=== PATIENT | female | born 1960 | race Caucasian/White ===

== ENCOUNTER 2020-12-24 15:30 | Outpatient (RCR) | payer MEDICARE, MEDICAID, SELFPAY ==
--- NOTE | 2020-09-18 08:38 | HO.OPPROGNO ---
Subjective Subjective Date of Service: 09/17/20 Reason For Visit: depression Interim History: Heavenly reports feeling less pressure now that ex-partner has housing, license, vehicle, but grief over loss of previous relationship with him. Mostly staying at home, activities with her children. Enjoyed her favorite store this week-states it is the one thing that is mostly the same since the pandemic. She clarifies that checking out is different now. Enjoys the atmosphere there. Discussed mindfulness meditation which she has not been practicing, however, feels she needs to return. Given virtual group resource sites for her to review. Reports sleep is appropriate, meds tolerated. Notices she has needed an Ativan during this time. Settling in, now that activity and responsibility are diminished, grief is setting in. Medication Compliance: Yes Side effects from medications: No Attending Groups: No (NA) Review of Systems Review of Systems Yes all other systems are reviewed and are negative Psychiatric: Reports depression (grieving loss of relationship) Mental Status Exam Mental Status Exam Patient Appearance: Well Grooomed and Appropriate Patient Orientation: Person, Place, Time and Situation Level of Consciousness: Awake, Appropriate and Alert Patient Behavior: Appropriate, Talkative and Cooperative Mood Description: Calm and Flat Affect Description: Flat Patient Cognition Impaired: No Ability to Follow Directions: Excellent Speech Pattern: Clear, Appropriate, Spontaneous Speech and Soft-Spoken Memory Description: Intact Hallucinations: None Delusions: Not Present Thought Process: Intact Thought Content: positive for Intact Depressive Symptoms: Loss of Int. in Activity, Isolating-Friends/Family, Unhappiness and Increased Fatigue Judgement: Good Discharge Plan Discharge Attending provider: Tegan Donnelly Medications: New quetiapine [Seroquel] 50 mg tablet 100 mg PO BEDTIME MDD Take 50-100 mg at bedtime Qty: 60 RF: 1 oxcarbazepine [Trileptal] 600 mg tablet 600 mg PO BID Qty: 60 RF: 1 bupropion HCl [Wellbutrin SR] 100 mg tablet sustained-release 12 hr 100 mg PO QAM Qty: 30 RF: 1 sertraline 50 mg tablet 50 mg PO DAILY Qty: 30 RF: 1 No Action hydrochlorothiazide 25 mg tablet 25 mg PO DAILY RF: 0 lorazepam 1 mg tablet 1 - 2 tab PO TID PRN (Reason: anxiety) RF: 0 rosuvastatin 10 mg tablet 1 tab PO DAILY RF: 0 aspirin 81 mg 81 mg PO DAILY RF: 0 Assessment & Plan Patient educated on: medication risk/benefits and therapeutic strategies Informed Consent: understands and further education needed Reason for contiued therapy Substantial Risk for: inability to function and rapid decompensation Greater than 50% of the session was spent on counseling and/or coordination of care
--- NOTE | 2020-09-18 08:55 | P.PNPSO_ITS ---
Subjective Subjective Date of Service: 08/20/20 Reason For Visit: depression Interim History: We go to put the car on the road on Wednesday. I need some time for myself. Expressed feeling burn-out with ex-partner and having to help him re-establish himself. Believes when he has his vehicle on the road this week she will be able to pull back and take some time for herself. Grieving loss of her partner and distancing currently at her own pace. They have a 40+ year history and she acknowledges how difficult this is for her. Medication Compliance: Yes Side effects from medications: No Attending Groups: No (NA) Review of Systems Review of Systems Yes all other systems are reviewed and are negative Psychiatric: Reports depression (grieving) and Reports other (mixed feelings regarding loss with responsibility) Mental Status Exam Mental Status Exam Patient Appearance: Well Grooomed, Fatigued and Appropriate Patient Orientation: Person, Place, Time and Situation Level of Consciousness: Awake, Appropriate and Alert Patient Behavior: Appropriate, Talkative, Cooperative, Passive, Fatigued and Good Eye Contact Mood Description: Flat and Sad Affect Description: Flat Patient Cognition Impaired: No Ability to Follow Directions: Excellent Speech Pattern: Clear, Appropriate, Spontaneous Speech and Soft-Spoken Memory Description: Intact Hallucinations: None Delusions: Not Present Thought Process: Intact Thought Content: positive for Intact Depressive Symptoms: Loss of Int. in Activity, Hopelessness, Isolating- Friends/Family, Unhappiness, Increased Fatigue, Low Self Esteem and Loss of Energy Judgement: Good Discharge Plan Discharge Attending provider: Tegan Donnelly Additional Instructions: 08/20/20-Continue current regime Medications: New quetiapine [Seroquel] 50 mg tablet 100 mg PO BEDTIME MDD Take 50-100 mg at bedtime Qty: 60 RF: 1 oxcarbazepine [Trileptal] 600 mg tablet 600 mg PO BID Qty: 60 RF: 1 bupropion HCl [Wellbutrin SR] 100 mg tablet sustained-release 12 hr 100 mg PO QAM Qty: 30 RF: 1 sertraline 50 mg tablet 50 mg PO DAILY Qty: 30 RF: 1 No Action hydrochlorothiazide 25 mg tablet 25 mg PO DAILY RF: 0 lorazepam 1 mg tablet 1 - 2 tab PO TID PRN (Reason: anxiety) RF: 0 rosuvastatin 10 mg tablet 1 tab PO DAILY RF: 0 aspirin 81 mg 81 mg PO DAILY RF: 0 Assessment & Plan Patient educated on: therapeutic strategies Informed Consent: understands and further education needed Reason for contiued therapy Substantial Risk for: inability to function and rapid decompensation Greater than 50% of the session was spent on counseling and/or coordination of care
--- NOTE | 2020-09-18 09:04 | HO.OPPROGNO ---
Subjective Subjective Date of Service: 08/27/20 Reason For Visit: depression Interim History: The car is on the road. He has an offer to live with a friend who is sober. I feel a great deal of relief and freedom. Reports ex-partner has his car and was offered housing-both relieving, positive developments to decrease her feeling of responsibility. Continues to terminate with him, these new developments she feels make this process easier. Medication Compliance: Yes Side effects from medications: No Attending Groups: No (NA) Review of Systems Review of Systems Yes all other systems are reviewed and are negative Psychiatric: Reports anhedonia and Reports other (Grief, discussed mixed feelings of sadness, relief, anger) Mental Status Exam Mental Status Exam Patient Appearance: Well Grooomed, Fatigued and Appropriate Patient Orientation: Person, Place, Time and Situation Level of Consciousness: Awake, Appropriate and Alert Patient Behavior: Appropriate, Talkative and Cooperative Mood Description: Anxious and Sad Affect Description: Flat Patient Cognition Impaired: No Ability to Follow Directions: Excellent Speech Pattern: Clear, Appropriate and Spontaneous Speech Memory Description: Intact Hallucinations: None Delusions: Not Present Thought Process: Intact and Goal Oriented Thought Content: positive for Intact Depressive Symptoms: Increased Irritability (at times, with anger, as part of grieving.) Judgement: Good Discharge Plan Discharge Attending provider: Tegan Donnelly Additional Instructions: 08/20/20-Continue current regime 08/27/20- Continue current regime Medications: New quetiapine [Seroquel] 50 mg tablet 100 mg PO BEDTIME MDD Take 50-100 mg at bedtime Qty: 60 RF: 1 oxcarbazepine [Trileptal] 600 mg tablet 600 mg PO BID Qty: 60 RF: 1 bupropion HCl [Wellbutrin SR] 100 mg tablet sustained-release 12 hr 100 mg PO QAM Qty: 30 RF: 1 sertraline 50 mg tablet 50 mg PO DAILY Qty: 30 RF: 1 No Action hydrochlorothiazide 25 mg tablet 25 mg PO DAILY RF: 0 lorazepam 1 mg tablet 1 - 2 tab PO TID PRN (Reason: anxiety) RF: 0 rosuvastatin 10 mg tablet 1 tab PO DAILY RF: 0 aspirin 81 mg 81 mg PO DAILY RF: 0 Assessment & Plan Patient educated on: therapeutic strategies Informed Consent: understands and further education needed Reason for contiued therapy Substantial Risk for: inability to function and rapid decompensation Greater than 50% of the session was spent on counseling and/or coordination of care
--- NOTE | 2020-09-18 09:15 | HO.OPPROGNO ---
Subjective Subjective Date of Service: 09/03/20 Reason For Visit: depression Interim History: Heavenly discussed feeling some decrease in stress now that her responsibility to ex-partner is diminishing as he is more independent. She is spending time resting and talking with her children, getting some feedback from friends and working on self-care. She reports feeling anxious and apprehensive about feeling grief. Discussed and focused on self-care Medication Compliance: Yes Side effects from medications: No Attending Groups: No (NA) Review of Systems Review of Systems Yes all other systems are reviewed and are negative Psychiatric: Reports anxiety and Reports other (fatigues, apprehensive about grief) Mental Status Exam Mental Status Exam Patient Appearance: Well Grooomed, Fatigued and Appropriate Patient Orientation: Person, Place, Time and Situation Level of Consciousness: Awake, Appropriate and Alert Patient Behavior: Appropriate, Talkative, Cooperative and Anxious Mood Description: Anxious Affect Description: Constricted Patient Cognition Impaired: No Ability to Follow Directions: Excellent Speech Pattern: Clear, Appropriate and Spontaneous Speech Memory Description: Intact Hallucinations: None Delusions: Not Present Thought Process: Intact Thought Content: positive for Intact Depressive Symptoms: Increased Anxiety, Loss of Int. in Activity and Unhappiness Judgement: Good Discharge Plan Discharge Attending provider: Tegan Donnelly Additional Instructions: 08/20/20-Continue current regime 08/27/20- Continue current regime 09/03/20- Continue current regime Medications: New quetiapine [Seroquel] 50 mg tablet 100 mg PO BEDTIME MDD Take 50-100 mg at bedtime Qty: 60 RF: 1 oxcarbazepine [Trileptal] 600 mg tablet 600 mg PO BID Qty: 60 RF: 1 bupropion HCl [Wellbutrin SR] 100 mg tablet sustained-release 12 hr 100 mg PO QAM Qty: 30 RF: 1 sertraline 50 mg tablet 50 mg PO DAILY Qty: 30 RF: 1 No Action hydrochlorothiazide 25 mg tablet 25 mg PO DAILY RF: 0 lorazepam 1 mg tablet 1 - 2 tab PO TID PRN (Reason: anxiety) RF: 0 rosuvastatin 10 mg tablet 1 tab PO DAILY RF: 0 aspirin 81 mg 81 mg PO DAILY RF: 0 Assessment & Plan Patient educated on: medication risk/benefits and therapeutic strategies Informed Consent: understands and further education needed Reason for contiued therapy Substantial Risk for: inability to function and rapid decompensation Greater than 50% of the session was spent on counseling and/or coordination of care
--- NOTE | 2020-09-18 09:25 | P.PNPSO_ITS ---
Subjective Subjective Date of Service: 09/10/20 Reason For Visit: depression Interim History: Heavenly discussed bargaining today. Will it be OK to be just good friends? . Discussed if this would be enough for her, potential conflicts should she decide to initiate another relationship and distance further from ex- partner and how that would be accepted overall. Discussed this in terms of her initial goal as well. Medication Compliance: Yes Side effects from medications: No Attending Groups: No (NA) Review of Systems Review of Systems Yes all other systems are reviewed and are negative Psychiatric: Reports other (sadness, bargaining within grief) Mental Status Exam Mental Status Exam Patient Appearance: Well Grooomed and Appropriate Patient Orientation: Person, Place and Time Level of Consciousness: Awake, Appropriate and Alert Patient Behavior: Appropriate Mood Description: Apathetic (bargaining within her grief) and Flat Affect Description: Flat Patient Cognition Impaired: No Ability to Follow Directions: Excellent Speech Pattern: Clear, Appropriate and Spontaneous Speech Memory Description: Intact Hallucinations: None Delusions: Not Present Thought Process: Intact Thought Content: positive for Intact Depressive Symptoms: Increased Irritability, Crying Spells, Loss of Int. in Activity, Hopelessness, Unhappiness, Low Self Esteem and Loss of Energy Judgement: Good Discharge Plan Discharge Attending provider: Tegan Donnelly Additional Instructions: 08/20/20-Continue current regime 08/27/20- Continue current regime 09/03/20- Continue current regime 09/10/20-Continue current regime Medications: New quetiapine [Seroquel] 50 mg tablet 100 mg PO BEDTIME MDD Take 50-100 mg at bedtime Qty: 60 RF: 1 oxcarbazepine [Trileptal] 600 mg tablet 600 mg PO BID Qty: 60 RF: 1 bupropion HCl [Wellbutrin SR] 100 mg tablet sustained-release 12 hr 100 mg PO QAM Qty: 30 RF: 1 sertraline 50 mg tablet 50 mg PO DAILY Qty: 30 RF: 1 No Action hydrochlorothiazide 25 mg tablet 25 mg PO DAILY RF: 0 lorazepam 1 mg tablet 1 - 2 tab PO TID PRN (Reason: anxiety) RF: 0 rosuvastatin 10 mg tablet 1 tab PO DAILY RF: 0 aspirin 81 mg 81 mg PO DAILY RF: 0 Assessment & Plan Patient educated on: therapeutic strategies Informed Consent: understands and further education needed Reason for contiued therapy Substantial Risk for: inability to function and rapid decompensation Greater than 50% of the session was spent on counseling and/or coordination of care
--- NOTE | 2020-09-24 15:35 | P.PNPSO_ITS ---
Subjective Subjective Date of Service: 09/24/20 Reason For Visit: depression Interim History: Heavenly discussed issues she is concerned about with her children today. Reports all three children have some depressive symptoms, son is currently a worry with anergy, amotivation, not getting involved in home life, not participating. This pattern has a significant history she reports. Reports med regime to be effective, considering a return to psychotherapy. Medication Compliance: Yes Side effects from medications: No Attending Groups: No (NA) Review of Systems Review of Systems Yes all other systems are reviewed and are negative Psychiatric: Reports hopelessness Comments: grief over loss of relationship and feeling the need to be present for this person to assist in his recovery and moving ahead, yet without acknowledgement of her needs. Mental Status Exam Mental Status Exam Patient Appearance: Well Grooomed and Fatigued Patient Orientation: Person, Place, Time and Situation Level of Consciousness: Awake and Alert Patient Behavior: Appropriate, Cooperative, Passive, Fatigued, Isolative and Good Eye Contact Mood Description: Depressed and Flat Affect Description: Flat Patient Cognition Impaired: No Ability to Follow Directions: Excellent Speech Pattern: Clear, Appropriate and Spontaneous Speech Memory Description: Intact Hallucinations: None Delusions: Not Present Thought Process: Intact Thought Content: positive for Intact Depressive Symptoms: Diff. Making Decisions, Loss of Int. in Activity, Feelings of Worthlessness, Hopelessness, Isolating-Friends/Family, Feelings of Guilt, Unh appiness, Increased Fatigue, Low Self Esteem and Loss of Energy Judgement: Good Discharge Plan Discharge Attending provider: Tegan Donnelly Additional Instructions: 08/20/20-Continue current regime 08/27/20- Continue current regime 09/03/20- Continue current regime 09/10/20-Continue current regime 09/24/20-Continue current regime Medications: New quetiapine [Seroquel] 50 mg tablet 100 mg PO BEDTIME MDD Take 50-100 mg at bedtime Qty: 60 RF: 1 oxcarbazepine [Trileptal] 600 mg tablet 600 mg PO BID Qty: 60 RF: 1 bupropion HCl [Wellbutrin SR] 100 mg tablet sustained-release 12 hr 100 mg PO QAM Qty: 30 RF: 1 sertraline 50 mg tablet 50 mg PO DAILY Qty: 30 RF: 1 No Action hydrochlorothiazide 25 mg tablet 25 mg PO DAILY RF: 0 lorazepam 1 mg tablet 1 - 2 tab PO TID PRN (Reason: anxiety) RF: 0 rosuvastatin 10 mg tablet 1 tab PO DAILY RF: 0 aspirin 81 mg 81 mg PO DAILY RF: 0 Assessment & Plan Patient educated on: therapeutic strategies Informed Consent: understands Reason for contiued therapy Substantial Risk for: inability to function Greater than 50% of the session was spent on counseling and/or coordination of care
--- NOTE | 2020-10-01 14:52 | P.PNPSO_ITS ---
Subjective Subjective Date of Service: 10/01/20 Reason For Visit: depression Interim History: Heavenly reports she is now feeling the effects of the pandemic . Discussed daughter returning home early from college. All the children will now be home until November-concerns about how to live collaboratively during this time, manage holidays and improve family cohesion. Continues to emotionally separate from ex-partner. Reports feeling well, and reports medication regime to be effective and without SE. Sleep schedule is reversing again as pt is prefering to be awake at night. Medication Compliance: Yes Side effects from medications: No Attending Groups: No (Not currently looking to join group) Review of Systems Review of Systems Yes all other systems are reviewed and are negative Psychiatric: Reports abnormal sleep pattern, Reports depression, Reports hopelessness and Reports anhedonia Mental Status Exam Mental Status Exam Patient Appearance: Well Grooomed and Appropriate Patient Orientation: Person, Place, Time and Situation Level of Consciousness: Awake and Alert Patient Behavior: Appropriate, Talkative, Cooperative and Passive Mood Description: Depressed Affect Description: Flat Patient Cognition Impaired: No Ability to Follow Directions: Excellent Speech Pattern: Clear, Appropriate and Spontaneous Speech Memory Description: Intact Hallucinations: None Delusions: Not Present Thought Process: Intact and Goal Oriented Thought Content: positive for Intact Depressive Symptoms: Difficulty Sleeping, Hopelessness, Isolating- Friends/Family, Unhappiness and Low Self Esteem Judgement: Good Discharge Plan Discharge Attending provider: Tegan Donnelly Additional Instructions: 08/20/20-Continue current regime 08/27/20- Continue current regime 09/03/20- Continue current regime 09/10/20-Continue current regime 09/24/20-Continue current regime 10/01/20-Continue current regime Medications: New quetiapine [Seroquel] 50 mg tablet 100 mg PO BEDTIME MDD Take 50-100 mg at bedtime Qty: 60 RF: 1 oxcarbazepine [Trileptal] 600 mg tablet 600 mg PO BID Qty: 60 RF: 1 bupropion HCl [Wellbutrin SR] 100 mg tablet sustained-release 12 hr 100 mg PO QAM Qty: 30 RF: 1 sertraline 50 mg tablet 50 mg PO DAILY Qty: 30 RF: 1 No Action hydrochlorothiazide 25 mg tablet 25 mg PO DAILY RF: 0 lorazepam 1 mg tablet 1 - 2 tab PO TID PRN (Reason: anxiety) RF: 0 rosuvastatin 10 mg tablet 1 tab PO DAILY RF: 0 aspirin 81 mg 81 mg PO DAILY RF: 0 Assessment & Plan Patient educated on: therapeutic strategies Informed Consent: understands Reason for contiued therapy Substantial Risk for: inability to function Greater than 50% of the session was spent on counseling and/or coordination of care
--- NOTE | 2020-10-08 15:38 | HO.OPPROGNO ---
Subjective Subjective Date of Service: 10/09/20 Reason For Visit: depression Interim History: Heavenly reports she will have all of her children at home for Thanksgiving, this being the first time in several years. Sangeeta, home from college, has conflicts with pt's ex-partner, pt discussed this tension. Pt continues to grieve loss of relationship as she had hoped it would be, but continues to allow ex-partner to be involved in her life superficially. Medication Compliance: Yes Side effects from medications: No Review of Systems Psychiatric: Reports anxiety, Reports depression, Reports hopelessness and Reports irritability Mental Status Exam Mental Status Exam Patient Orientation: Person, Place, Time and Situation Level of Consciousness: Awake, Appropriate and Alert Patient Behavior: Appropriate, Talkative, Cooperative, Anxious, Fatigued and Good Eye Contact Mood Description: Withdrawn, Depressed and Apprehensive Affect Description: Flat Patient Cognition Impaired: No Ability to Follow Directions: Excellent Speech Pattern: Clear, Appropriate and Spontaneous Speech Memory Description: Intact Hallucinations: None Delusions: Not Present Thought Process: Intact and Goal Oriented Thought Content: positive for Intact and positive for Goal Oriented Depressive Symptoms: Increased Anxiety, Loss of Int. in Activity, Feelings of Worthlessness, Hopelessness, Isolating-Friends/Family, Feelings of Guilt, Unhappiness, Increased Fatigue, Low Self Esteem and Loss of Energy Judgement: Good Discharge Plan Discharge Attending provider: Tegan Donnelly Medications: New quetiapine [Seroquel] 50 mg tablet 100 mg PO BEDTIME MDD Take 50-100 mg at bedtime Qty: 60 RF: 1 oxcarbazepine [Trileptal] 600 mg tablet 600 mg PO BID Qty: 60 RF: 1 bupropion HCl [Wellbutrin SR] 100 mg tablet sustained-release 12 hr 100 mg PO QAM Qty: 30 RF: 1 sertraline 50 mg tablet 50 mg PO DAILY Qty: 30 RF: 1 No Action hydrochlorothiazide 25 mg tablet 25 mg PO DAILY RF: 0 lorazepam 1 mg tablet 1 - 2 tab PO TID PRN (Reason: anxiety) RF: 0 rosuvastatin 10 mg tablet 1 tab PO DAILY RF: 0 aspirin 81 mg 81 mg PO DAILY RF: 0 Assessment & Plan Assessment & Plan (1) Bipolar disorder, current episode depressed, severe, without psychotic features: Status: Acute Code(s): F31.4 - Bipolar disorder, current episode depressed, severe, without psychotic features Assessment and Plan: -continue current regime -encourage self-care -encourage a return to psychotherapy to process loss of relationship Patient educated on: medication risk/benefits and therapeutic strategies Informed Consent: understands Reason for contiued therapy Substantial Risk for: inability to function and rapid decompensation Greater than 50% of the session was spent on counseling and/or coordination of care
--- NOTE | 2020-10-15 15:48 | HO.OPPROGNO ---
Subjective Subjective Date of Service: 10/15/20 Reason For Visit: depression Interim History: Heavenly reports her son Aubrey is ill. They question COVID. She asked for information regarding testing at [facility] which was provided. Reports holiday was quiet and went well with her children. Current medication regime effective and without SE. Focus today are her concerns for her son's health. Medication Compliance: Yes Side effects from medications: No Attending Groups: No (NA) Review of Systems Psychiatric: Reports anxiety (worry about son's health), Reports depression and Reports anhedonia Mental Status Exam Mental Status Exam Patient Appearance: Well Grooomed Patient Orientation: Person, Place, Time and Situation Level of Consciousness: Awake, Appropriate and Alert Patient Behavior: Appropriate Mood Description: Fearful (worried about her son's health), Sad, Nervous and Apprehensive Affect Description: Depressed, Fearful, Anxious, Flat, Nervous and Apprehensive Patient Cognition Impaired: No Ability to Follow Directions: Excellent Speech Pattern: Clear, Appropriate and Spontaneous Speech Memory Description: Intact Hallucinations: None Delusions: Not Present Thought Process: Intact Thought Content: positive for Intact Depressive Symptoms: Increased Anxiety, Diff. Making Decisions, Crying Spells, Isolating-Friends/Family, Unhappiness and Difficulty Concentrating Judgement: Good Discharge Plan Discharge Attending provider: Tegan Donnelly Medications: New quetiapine [Seroquel] 50 mg tablet 100 mg PO BEDTIME MDD Take 50-100 mg at bedtime Qty: 60 RF: 1 oxcarbazepine [Trileptal] 600 mg tablet 600 mg PO BID Qty: 60 RF: 1 bupropion HCl [Wellbutrin SR] 100 mg tablet sustained-release 12 hr 100 mg PO QAM Qty: 30 RF: 1 sertraline 50 mg tablet 50 mg PO DAILY Qty: 30 RF: 1 lorazepam 0.5 mg tablet 0.5 mg PO BID PRN (Reason: anxiety) Qty: 60 RF: 0 Discontinued lorazepam 1 mg tablet 1 - 2 tab PO TID PRN (Reason: anxiety) RF: 0 No Action hydrochlorothiazide 25 mg tablet 25 mg PO DAILY RF: 0 rosuvastatin 10 mg tablet 1 tab PO DAILY RF: 0 aspirin 81 mg 81 mg PO DAILY RF: 0 Assessment & Plan Assessment & Plan (1) Bipolar disorder, current episode depressed, severe, without psychotic features: Status: Acute Code(s): F31.4 - Bipolar disorder, current episode depressed, severe, without psychotic features Assessment and Plan: -Continue current regime Greater than 50% of the session was spent on counseling and/or coordination of care
--- NOTE | 2020-10-22 15:23 | HO.PHPPROGNO ---
Subjective Subjective Date of Service: 10/22/20 Reason For Visit: depression Interim History: Heavenly reports she and her children have been diagnosed with COVID-19 within the past week. All are doing well and being followed by their primary care teams. They await Heavenly's brother's results. She believes son's colleague is the origin of the virus. Discussed how they are managing during this time, concerns and questions regarding COVID were addressed. Medication Compliance: Yes Side effects from medications: No Attending Groups: No (NA) Review of Systems Psychiatric: Reports as per HPI Mental Status Exam Mental Status Exam Patient Appearance: Well Grooomed and Appropriate Patient Orientation: Person, Place, Time and Situation Level of Consciousness: Awake, Appropriate and Alert Patient Behavior: Appropriate, Talkative and Cooperative Mood Description: Calm and Appropriate Affect Description: Calm and Appropriate Patient Cognition Impaired: No Ability to Follow Directions: Excellent Speech Pattern: Clear Memory Description: Intact Hallucinations: None Delusions: Not Present Thought Process: Intact and Goal Oriented Thought Content: positive for Intact and positive for Goal Oriented Depressive Symptoms: Increased Anxiety (concern about family having COVID-all are asymptomatic at the current time) Judgement: Good Diagnostics Labs Labs: COVID-19 positive 10/16/20 Assessment & Plan Assessment & Plan (1) Bipolar disorder, current episode depressed, severe, without psychotic features: Status: Acute Code(s): F31.4 - Bipolar disorder, current episode depressed, severe, without psychotic features Assessment and Plan: Continue current regime (2) COVID-19: Status: Acute Code(s): U07.1 - COVID-19 Assessment and Plan: Education provided, questions addressed, resources reviewed with pt. Certification I certify that partial hospital treatment is medically necessary due to the symptoms and problems resulting from the patient's mental illness and the failure to treat the patient at the partial hospital level of care would likely result in the patient requiring inpatient psychiatric care which could not be prevented at a less intensive level of care. Greater than 50% of the session was spent on counseling and/or coordination of care Discharge Plan Discharge Attending provider: Tegan Donnelly Medications: New quetiapine [Seroquel] 50 mg tablet 100 mg PO BEDTIME MDD Take 50-100 mg at bedtime Qty: 60 RF: 1 oxcarbazepine [Trileptal] 600 mg tablet 600 mg PO BID Qty: 60 RF: 1 bupropion HCl [Wellbutrin SR] 100 mg tablet sustained-release 12 hr 100 mg PO QAM Qty: 30 RF: 1 sertraline 50 mg tablet 50 mg PO DAILY Qty: 30 RF: 1 lorazepam 0.5 mg tablet 0.5 mg PO BID PRN (Reason: anxiety) Qty: 60 RF: 0 Discontinued lorazepam 1 mg tablet 1 - 2 tab PO TID PRN (Reason: anxiety) RF: 0 No Action hydrochlorothiazide 25 mg tablet 25 mg PO DAILY RF: 0 rosuvastatin 10 mg tablet 1 tab PO DAILY RF: 0 aspirin 81 mg 81 mg PO DAILY RF: 0
--- NOTE | 2020-10-29 14:56 | P.PNPSO_ITS ---
Subjective Subjective Date of Service: 10/29/20 Reason For Visit: depression Interim History: Pt reports feeling physically well (COVID +) with continued loss of taste and smell. Family has completed quarantine and children are returning to work. Reflected upon this past two weeks and what she has learned. Discussed concerns about her brother who was hospitalized last week at [facility] [place] with depression. The family is unable to visit due to COVID and they do not have much information on his progress. He does communicate with them via text. Discussed [facility] [place] and transfer of services. Pt tearful-discussion of potential options. Medication Compliance: Yes Side effects from medications: No Review of Systems Reports other (loss of taste and smell due to COVID) Psychiatric: Reports anhedonia and Reports other (worry,concern for brother; grief over clinic closing) Mental Status Exam Mental Status Exam Patient Appearance: Well Grooomed and Appropriate Patient Orientation: Person, Place, Time and Situation Level of Consciousness: Awake, Appropriate and Alert Patient Behavior: Appropriate, Talkative, Cooperative, Good Eye Contact and Crying Mood Description: Depressed and Sad Affect Description: Flat Patient Cognition Impaired: No Ability to Follow Directions: Excellent Speech Pattern: Clear, Appropriate, Spontaneous Speech and Coherent Memory Description: Intact Hallucinations: None Delusions: Not Present Thought Process: Intact Thought Content: positive for Intact, positive for [place] and positive for Circumstantial Depressive Symptoms: Crying Spells, Hopelessness and Unhappiness Judgement: Good Discharge Plan Discharge Attending provider: Tegan Donnelly Medications: New quetiapine [Seroquel] 50 mg tablet 100 mg PO BEDTIME MDD Take 50-100 mg at bedtime Qty: 60 RF: 1 oxcarbazepine [Trileptal] 600 mg tablet 600 mg PO BID Qty: 60 RF: 1 bupropion HCl [Wellbutrin SR] 100 mg tablet sustained-release 12 hr 100 mg PO QAM Qty: 30 RF: 1 sertraline 50 mg tablet 50 mg PO DAILY Qty: 30 RF: 1 lorazepam 0.5 mg tablet 0.5 mg PO BID PRN (Reason: anxiety) Qty: 60 RF: 0 Discontinued lorazepam 1 mg tablet 1 - 2 tab PO TID PRN (Reason: anxiety) RF: 0 No Action hydrochlorothiazide 25 mg tablet 25 mg PO DAILY RF: 0 rosuvastatin 10 mg tablet 1 tab PO DAILY RF: 0 aspirin 81 mg 81 mg PO DAILY RF: 0 Assessment & Plan Assessment & Plan (1) Bipolar disorder, current episode depressed, severe, without psychotic features: Status: Acute Code(s): F31.4 - Bipolar disorder, current episode depressed, severe, without psychotic features Assessment and Plan: -Continue current regime -Treatment planning for transfer of care. Greater than 50% of the session was spent on counseling and/or coordination of care Telehealth Telehealth Location of provider rendering services: practice address Location of patient: address on file Patient Identification confirmed using: Name, : Yes Telehealth method: video Patient verbally consented to treatment: Yes Patient verbally consented to billing insurance company: Yes Patient informed of any privacy concerns related to visit: Yes Time spent with patient (mins): 35
--- NOTE | 2020-10-31 08:31 | P.EN_ITS ---
Event Note Date of Service: 10/31/20 Event Note: On 10/29/20, discussed with pt that [facility] patient clinic will cl ose. Pt is undecided as to her choice regarding transfer of providers, we will continue discussion over the next few weeks.
--- NOTE | 2020-10-31 08:31 | PM.EVENT ---
Event Note Date of Service: 10/31/20 Event Note: On 10/29/20, discussed with pt that [facility] out patient clinic will close. Pt is undecided as to her choice regarding transfer of providers, we will continue discussion over the next few weeks.
--- NOTE | 2020-11-06 15:35 | HO.OPPROGNO ---
Subjective Subjective Date of Service: 11/11/20 Reason For Visit: depression Interim History: Family continues to heal positively from COVID. Pt reports her smell and taste have returned and her children have had symptoms diminish. Her son and daughter will return to work this week. Discussed clinic closing and transition of care, goals for her treatment and what her needs are in a treatment team Medication Compliance: Yes Side effects from medications: No Attending Groups: No (NA) Review of Systems Review of Systems Yes all other systems are reviewed and are negative Psychiatric: Reports depression, Reports hopelessness and Reports anhedonia Mental Status Exam Mental Status Exam Patient Appearance: Well Grooomed and Appropriate Patient Orientation: Person, Place, Time and Situation Level of Consciousness: Awake, Appropriate and Alert Patient Behavior: Appropriate Mood Description: Depressed Affect Description: Flat Patient Cognition Impaired: No Ability to Follow Directions: Good Speech Pattern: Clear, Appropriate and Spontaneous Speech Memory Description: Intact Hallucinations: None Delusions: Not Present Thought Process: Intact Thought Content: positive for Intact Depressive Symptoms: Increased Anxiety (Brother is currently in hospital-severe depn, catatonia-requires ECT. Pt is worried.), Hopelessness and Unhappiness Judgement: Good Discharge Plan Discharge Attending provider: Tegan Donnelly Medications: New quetiapine [Seroquel] 50 mg tablet 100 mg PO BEDTIME MDD Take 50-100 mg at bedtime Qty: 60 RF: 1 oxcarbazepine [Trileptal] 600 mg tablet 600 mg PO BID Qty: 60 RF: 1 bupropion HCl [Wellbutrin SR] 100 mg tablet sustained-release 12 hr 100 mg PO QAM Qty: 30 RF: 1 sertraline 50 mg tablet 50 mg PO DAILY Qty: 30 RF: 1 lorazepam 0.5 mg tablet 0.5 mg PO BID PRN (Reason: anxiety) Qty: 60 RF: 0 Discontinued lorazepam 1 mg tablet 1 - 2 tab PO TID PRN (Reason: anxiety) RF: 0 No Action hydrochlorothiazide 25 mg tablet 25 mg PO DAILY RF: 0 rosuvastatin 10 mg tablet 1 tab PO DAILY RF: 0 aspirin 81 mg 81 mg PO DAILY RF: 0 Assessment & Plan Assessment & Plan (1) Bipolar disorder, current episode depressed, severe, without psychotic features: Status: Acute Code(s): F31.4 - Bipolar disorder, current episode depressed, severe, without psychotic features Assessment and Plan: -Continue current regime. Patient educated on: medication risk/benefits and therapeutic strategies Informed Consent: understands Greater than 50% of the session was spent on counseling and/or coordination of care Telehealth Telehealth Location of provider rendering services: practice address Location of patient: address on file Patient Identification confirmed using: Name, : Yes Telehealth method: video Patient verbally consented to treatment: Yes Patient verbally consented to billing insurance company: Yes Patient informed of any privacy concerns related to visit: Yes Time spent with patient (mins): 30
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
--- NOTE | 2020-11-19 13:50 | P.PNPSO_ITS ---
Subjective Subjective Date of Service: 11/28/20 Reason For Visit: depression Interim History: Pt reports a difficult week. Her son was involved in an MVA without injury however totaled his car. This has increased her anxiety as his commute is quite long ([place] to [place] daily) and winter weather increases risk. Discussed sx of depression. Willing to discuss medicine options- review of possible increase of Sertraline or Wellbutrin, change of Seroquel to Latuda for bipolar depression. Discussed updating labs and EKG Medication Compliance: Yes Side effects from medications: No Review of Systems Review of Systems Yes all other systems are reviewed and are negative (denies-recovered from COVID) Mental Status Exam Mental Status Exam Patient Appearance: Well Grooomed and Appropriate Patient Orientation: Person, Place, Time and Situation Level of Consciousness: Alert Patient Behavior: Appropriate Mood Description: Flat Affect Description: Flat Patient Cognition Impaired: No Ability to Follow Directions: Good Speech Pattern: Spontaneous Speech Memory Description: Intact Hallucinations: None Delusions: Not Present Thought Process: Intact Thought Content: positive for Intact Depressive Symptoms: Increased Anxiety (r/t son's MVA), Hopelessness, Unhappiness, Low Self Esteem and Difficulty Concentrating Judgement: Good Discharge Plan Discharge Attending provider: Tegan Donnelly Medications: New quetiapine [Seroquel] 50 mg tablet 100 mg PO BEDTIME MDD Take 50-100 mg at bedtime Qty: 60 RF: 1 lorazepam 0.5 mg tablet 0.5 mg PO BID PRN (Reason: anxiety) Qty: 60 RF: 0 bupropion HCl [Wellbutrin XL] 150 mg tablet extended release 24 hr 150 mg PO QAM Qty: 30 RF: 1 Continued oxcarbazepine [Trileptal] 600 mg tablet 600 mg PO BID Qty: 60 RF: 1 sertraline 50 mg tablet 50 mg PO DAILY Qty: 30 RF: 1 Discontinued lorazepam 1 mg tablet 1 - 2 tab PO TID PRN (Reason: anxiety) RF: 0 No Action hydrochlorothiazide 25 mg tablet 25 mg PO DAILY RF: 0 rosuvastatin 10 mg tablet 1 tab PO DAILY RF: 0 aspirin 81 mg 81 mg PO DAILY RF: 0 Assessment & Plan Assessment & Plan (1) Bipolar disorder, current episode depressed, severe, without psychotic features: Status: Acute Code(s): F31.4 - Bipolar disorder, current episode depressed, severe, without psychotic features Assessment and Plan: Pt considering medication changes to target depressive sx. Will look at Latuda and discuss next week. Patient educated on: medication risk/benefits and therapeutic strategies Informed Consent: understands and further education needed Greater than 50% of the session was spent on counseling and/or coordination of care Telehealth Telehealth Location of provider rendering services: practice address Location of patient: address on file Patient Identification confirmed using: Name, : Yes Telehealth method: video Patient verbally consented to treatment: Yes Patient verbally consented to billing insurance company: Yes Patient informed of any privacy concerns related to visit: Yes Time spent with patient (mins): 30
--- NOTE | 2020-11-29 08:41 | HO.OPPROGNO ---
Subjective Subjective Date of Service: 11/29/20 Reason For Visit: depression Interim History: Pt reviewing and considering medication regime changes. Discussed an increase and change in Wellbutrin to 150 mg XL a.m. Continues to review Latuda. At this time would like to keep Trileptal and Sertraline in place. Ready to complete her labs on 11/29/20. Medication Compliance: Yes Side effects from medications: No Review of Systems Review of Systems Yes all other systems are reviewed and are negative (denies current medical issues) Mental Status Exam Mental Status Exam Patient Appearance: Appropriate Patient Orientation: Person, Place, Time and Situation Level of Consciousness: Awake and Alert Patient Behavior: Appropriate Mood Description: Constricted Affect Description: Flat Patient Cognition Impaired: No Ability to Follow Directions: Good Speech Pattern: Spontaneous Speech Memory Description: Intact Delusions: Not Present Thought Process: Intact Thought Content: positive for Intact Depressive Symptoms: Diff. Making Decisions, Crying Spells, Hopelessness, Unhappiness and Low Self Esteem Judgement: Good Discharge Plan Discharge Attending provider: Tegan Donnelly Medications: New quetiapine [Seroquel] 50 mg tablet 100 mg PO BEDTIME MDD Take 50-100 mg at bedtime Qty: 60 RF: 1 lorazepam 0.5 mg tablet 0.5 mg PO BID PRN (Reason: anxiety) Qty: 60 RF: 0 bupropion HCl [Wellbutrin XL] 150 mg tablet extended release 24 hr 150 mg PO QAM Qty: 30 RF: 1 Continued oxcarbazepine [Trileptal] 600 mg tablet 600 mg PO BID Qty: 60 RF: 1 sertraline 50 mg tablet 50 mg PO DAILY Qty: 30 RF: 1 Discontinued lorazepam 1 mg tablet 1 - 2 tab PO TID PRN (Reason: anxiety) RF: 0 No Action hydrochlorothiazide 25 mg tablet 25 mg PO DAILY RF: 0 rosuvastatin 10 mg tablet 1 tab PO DAILY RF: 0 aspirin 81 mg 81 mg PO DAILY RF: 0 Assessment & Plan Assessment & Plan (1) Bipolar disorder, current episode depressed, severe, without psychotic features: Status: Acute Code(s): F31.4 - Bipolar disorder, current episode depressed, severe, without psychotic features Assessment and Plan: -Change Wellbutrin to XL 150mg a.m. Greater than 50% of the session was spent on counseling and/or coordination of care Telehealth Telehealth Location of provider rendering services: practice address Location of patient: address on file Patient Identification confirmed using: Name, : Yes Telehealth method: video Patient verbally consented to treatment: Yes Patient verbally consented to billing insurance company: Yes Patient informed of any privacy concerns related to visit: Yes Time spent with patient (mins): 30
--- NOTE | 2020-12-10 21:05 | HO.OPPROGNO ---
Subjective Subjective Date of Service: 12/10/20 Reason For Visit: depression Interim History: Pt discussed feeling ready to make some medication changes for sx depression. Review of sx, previous trials, SE, efficacy. Review of titration options, new trials, target sx. Medication Compliance: Yes Side effects from medications: No Review of Systems Review of Systems Yes all other systems are reviewed and are negative (pt denies) Psychiatric: Reports anxiety, Reports depression and Reports hopelessness Mental Status Exam Mental Status Exam Patient Appearance: Well Grooomed, Fatigued and Appropriate Patient Orientation: Person, Place, Time and Situation Level of Consciousness: Awake and Alert Patient Behavior: Appropriate Mood Description: Depressed Affect Description: Flat Patient Cognition Impaired: No Ability to Follow Directions: Good Speech Pattern: Spontaneous Speech Memory Description: Intact Hallucinations: None Delusions: Not Present Thought Process: Intact Thought Content: positive for Intact Depressive Symptoms: Loss of Int. in Activity, Feelings of Worthlessness, Hopelessness, Unhappiness, Increased Fatigue, Low Self Esteem and Loss of Energy Judgement: Good Diagnostics Labs Labs: Pt has labs ordered. She will follow up. Discharge Plan Discharge Attending provider: Tegan Joshi Medications: New quetiapine [Seroquel] 50 mg tablet 100 mg PO BEDTIME MDD Take 50-100 mg at bedtime Qty: 60 RF: 1 lorazepam 0.5 mg tablet 0.5 mg PO BID PRN (Reason: anxiety) Qty: 60 RF: 0 bupropion HCl [Wellbutrin XL] 150 mg tablet extended release 24 hr 150 mg PO QAM Qty: 30 RF: 1 Trintellix 20 mg tablet 20 mg PO DAILY Qty: 30 RF: 0 Continued oxcarbazepine [Trileptal] 600 mg tablet 600 mg PO BID Qty: 60 RF: 1 Discontinued lorazepam 1 mg tablet 1 - 2 tab PO TID PRN (Reason: anxiety) RF: 0 No Action hydrochlorothiazide 25 mg tablet 25 mg PO DAILY RF: 0 rosuvastatin 10 mg tablet 1 tab PO DAILY RF: 0 aspirin 81 mg 81 mg PO DAILY RF: 0 Assessment & Plan Assessment & Plan (1) Bipolar disorder, current episode depressed, severe, without psychotic features: Status: Acute Code(s): F31.4 - Bipolar disorder, current episode depressed, severe, without psychotic features Assessment and Plan: -Labs -Trintellix 20 mg daily -Discontinue Sertraline. Patient educated on: medication risk/benefits and therapeutic strategies Informed Consent: understands Reason for contiued therapy Substantial Risk for: inability to function Greater than 50% of the session was spent on counseling and/or coordination of care Telehealth Telehealth Location of provider rendering services: practice address Location of patient: address on file Patient Identification confirmed using: Name, : Yes Telehealth method: video Patient verbally consented to treatment: Yes Patient verbally consented to billing insurance company: Yes Patient informed of any privacy concerns related to visit: Yes Time spent with patient (mins): 30
== END 2021-01-12 23:55 | disposition home or self-care (01) ==
LOC: HO.PAOS 15:30
PROVIDERS: Visit Provider Clinical Nurse Specialist Psychiatric/Mental Health, Adult
DX: F31.4 Bipolar disorder, current episode depressed, severe, without psychotic features (principal); F43.10 Post-traumatic stress disorder, unspecified; Z86.19 Personal history of other infectious and parasitic diseases
CPT/HCPCS: 99213; 99214

== ENCOUNTER 2020-12-31 12:13 | Outpatient (REF) | payer MEDICARE, MEDICAID, SELFPAY ==
[2020-12-31 13:17] LABS: MANUAL DIFF FLAG NO
[2020-12-31 13:19] LABS: Basophils Percent Auto 0.3 % (0-2); Eosinophils Absolute Auto 0.2 X10*3/uL (0.0-0.4); Eosinophils Percent Auto 3.9 % (0-4); Hematocrit 38.4 % (37-47); Imm Gran Abs Auto 0.02 X10*3/uL (0.00-0.03); Imm Gran Pct Auto 0.3 % (0.0-0.4); Lymphocytes Absolute Auto 1.5 X10*3/uL (1.2-4.9); Lymphocytes Percent Auto 23.5 % (20-40); Mean Corpuscular HGB Conc 33.9 g/dl (31.0-35.0); Mean Corpuscular Hemoglobin 29.1 pg (27.0-33.0); Mean Corpuscular Volume 86.1 fL (80-98); Mean Platelet Volume 11.4 fL (9.4-12.3); Monocytes Absolute Auto 0.3 X10*3/uL (0.1-1.2); Monocytes Percent Auto 5.5 % (2-11); Neutrophils Absolute Auto 4.1 X10*3/uL (2.0-8.3); Neutrophils Percent Auto 66.5 % (45-73); Platelet Count 161 X10*3/uL (160-400); Red Blood Count 4.46 X10*6/uL (4.20-5.50); Red Cell Distribution Width 12.7 % (11.0-16.0); White Blood Count 6.2 X10*3/uL (4.8-10.8)
[2020-12-31 13:37] LABS: Estimated Average Glucose 91 mg/dL; Hemoglobin A1c % 4.8 %
[2020-12-31 13:47] LABS: Alanine Aminotransferase 16 U/L (0-31); Albumin Level 4.1 g/dL (3.5-5.0); Alkaline Phosphatase 77 U/L (39-117); Anion Gap 11 (12-20); Aspartate Amino Transferase 19 U/L (5-31); Bilirubin Total 0.6 mg/dL (0.0-1.0); Blood Urea Nitrogen 26 mg/dL (9-16); Calcium 9.3 mg/dL (8.4-10.2); Carbon Dioxide 33 mmol/L (22-29); Chloride 100 mmol/L (96-108); Cholesterol 205 mg/dL; Estimated Glomerular Filt Rate 57; Glucose Random 75 mg/dL (60-115); HDL Cholesterol 68 mg/dL; Iron 75 mcg/dL (30-160); LDL Cholesterol Calculated 116 mg/dl; Magnesium 2.2 mg/dL (1.6-2.6); Percent Iron Saturation 27 % (15-50); Potassium 3.9 mmol/L (3.3-5.1); Sodium 140 mmol/L (135-145); Total Iron Binding Capacity 279 mcg/dL (228-428); Total Protein 7.5 g/dL (6.5-8.0); Triglycerides 108 mg/dL; Unsaturated Iron Binding 204 ug/dL
[2020-12-31 14:08] LABS: Ferritin 78 ng/mL (10-250); Free T4 (Free Thyroxine) 0.84 ng/dL (0.71-1.85); Thyroid Stimulating Hormone 0.53 uIU/mL (0.32-4.0); Vitamin D 25-OH Total 45.5 ng/mL (>30)
[2020-12-31 14:21] LABS: Folate 17.2 ng/mL (> or = 4.0); Vitamin B12 1200 pg/mL (200-900)
== END 2020-12-31 12:14 | disposition home or self-care (01) ==
LOC: HO.LAB 12:13
PROVIDERS: Visit Provider Clinical Nurse Specialist Psychiatric/Mental Health, Adult
DX: F31.4 Bipolar disorder, current episode depressed, severe, without psychotic features (principal)
CPT/HCPCS: 36415; 80053; 80061; 82306; 82607; 82728; 82746; 83036; 83540; 83735; 84439; 84443; 85025